=== PATIENT | female | born 1955 | race Hispanic/Latino ===

== ENCOUNTER 2024-03-23 06:57 | Observation (INO) | payer MEDICARE ==
[2024-03-21 17:20] LABS: BASOPHILS # (AUTO) 0.1 (0.0-0.1); EOSINOPHILS # (AUTO) 0.2 (0.0-0.4); EOSINOPHILS % 1.8 % (0.0-6.0); HEMATOCRIT 42.1 % (34.2-44.1); HEMOGLOBIN 14.1 g/dL (12.0-16.0); LYMPHOCYTES # (AUTO) 2.3 (1.0-3.2); LYMPHOCYTES % 27.7 % (18.0-39.1); MEAN CORPUSCULAR HEMOGLOBIN 30.8 pg (28-32); MEAN CORPUSCULAR HGB CONC 33.5 g/dL (31-35); MEAN CORPUSCULAR VOLUME 91.9 fL (81-99); MONOCYTES # (AUTO) 0.9 (0.2-0.8); MONOCYTES % 11.2 % (4.4-11.3); NEUTROPHILS # (AUTO) 4.8 (2.1-6.9); NEUTROPHILS % 58.1 % (38.7-80.0); PLATELET COUNT 219 x10e3/uL (140-360); RED BLOOD COUNT 4.58 x10e6/uL (3.6-5.1); RED CELL DISTRIBUTION WIDTH 12.6 % (11.7-14.4); WHITE BLOOD COUNT 8.22 x10e3/uL (4.8-10.8)
[2024-03-21 17:34] LABS: INR 0.94; PROTHROMBIN TIME 13.2 seconds (11.9-14.5)
[2024-03-21 17:42] LABS: ANION GAP 15.6 mmol/L (8-16); CALCIUM 9.5 mg/dL (8.4-10.2); CREATININE, SERUM 0.79 mg/dL (0.57-1.11); POTASSIUM 3.6 mmol/L (3.5-5.1)
[~2024-03-23 06:57] MED LIST: DORZOLAMIDE 2%10 ML OP; LATANOPROST2.5 ML OP; PREDNISOLO15 MG/5 ML OP
[2024-03-23] MEDS ORDERED: ROCURONIUM BROMIDE 1 ML IV ONE (07:10)
[2024-03-23] MEDS ORDERED: LIDOCAINE HCL 2% LOCAL INJ 5 ML SDV VIAL INJ ONE (07:10)
[2024-03-23] MEDS ORDERED: FENTANYL CITRATE/PF 100MCG/2 ML INJ ONE (07:10)
[2024-03-23] MEDS ORDERED: PROPOFOL IV EMULSION 10 MG/ML 20 ML VIAL ONE (07:10)
[2024-03-23] MEDS ORDERED: ACETAMINOPHEN 1000 MG/100 ML 100 ML IV ONE (07:10)
[2024-03-23] MEDS ORDERED: SEVOFLURANE INHAL SOLN 250 ML PEN BTL ONE (07:10)
[2024-03-23] MEDS: LACTATED RINGER'S 1,000 ML ONE (08:18)
[2024-03-23] MEDS ORDERED: DEXAMETHASONE SOD PHOS INJ 4 MG/ML SDV ONE (08:44)
[2024-03-23] MEDS ORDERED: FAMOTIDINE 20 MG/2 ML VIAL IV ONE (08:44)
[2024-03-23] MEDS ORDERED: KETAMINE 50MG/5ML SYR ONE (08:44)
[2024-03-23] MEDS ORDERED: ONDANSETRON HCL INJ 2MG/ML 2ML 2 MG/ML VIAL ONE (08:44)
[2024-03-23] MEDS ORDERED: LIDOCAINE HCL (LTA) 4 ML SOLN ONE (10:16)
[2024-03-23] MEDS ORDERED: SUGAMMADEX SODIUM 200 MG/2 ML VIAL IV ONE (10:57)
[2024-03-23] MEDS ORDERED: LACTATED RINGER'S 1,000 ML ONE (10:58)
[2024-03-23] MEDS ORDERED: HYDROCODON-ACE1 EA12 PO (11:57)
[2024-03-23] MEDS ORDERED: CEPACOL SORE THROAT LOZENGES PO PRN (12:00)
[2024-03-23] MEDS ORDERED: ACETAMINOPHEN 325 MG TAB PO PRN (12:00)
[2024-03-23] MEDS ORDERED: CARISOPRODOL 350 MG TAB PO PRN (12:00)
[2024-03-23] MEDS ORDERED: ZOLPIDEM TARTRATE 5 MG TAB PO PRN ×2 (12:00→21:00)
[2024-03-23] MEDS ORDERED: MAGNESIUM/ALUMINUM/SIMETHICONE 30 ML UDC PO PRN (12:00)
[2024-03-23] MEDS ORDERED: OXYCODONE/ACETAMINOPHEN 5-325 1 EACH TABLET PO PRN (12:00)
[2024-03-23] MEDS ORDERED: MORPHINE SULFATE 5 MG/ML VIAL IM PRN (12:00)
[2024-03-23] MEDS: FENTANYL CITRATE/PF 100MCG/2 ML INJ ONE (12:50)
[2024-03-23] MEDS: CEFAZOLIN SODIUM 2 GM ONE (15:00)
[2024-03-23] MEDS: METOCLOPRAMIDE HCL 10 MG/2ML VIAL ONE (15:02)
[2024-03-23 15:20] VITALS: BP 115/89; PULSE 89; RESP 19; TEMP 97.1; O2SAT 100
[2024-03-23] MEDS: LACTATED RINGER'S 1,000 ML IV SCH (15:59)
[2024-03-23] MEDS: HYDROMORPHONE 2MG/ML IV PRN (17:20)
[2024-03-23 18:23] VITALS: BP 144/91; PULSE 104; RESP 18; TEMP 98.2; O2SAT 100
[2024-03-23 20:00] VITALS: BP 153/82; PULSE 105; RESP 16; TEMP 98.2; O2SAT 100
[2024-03-23] MEDS: ONDANSETRON HCL INJ 2MG/ML 2ML 2 MG/ML VIAL IV PRN (20:50)
[2024-03-23] MEDS: LATANOPROST(OPTH) 2.5 ML BTL OP SCH (20:55)
[2024-03-23] MEDS ORDERED: LATANOPROST(OPTH) 2.5 ML BTL OP SCH (21:00)
[2024-03-23] MEDS: PROMETHAZINE HCL (IM) 25 MG/ML VIAL IM PRN (23:36)
[2024-03-24] VITALS: BP 126/79; PULSE 99; RESP 20; TEMP 98.6; O2SAT 100
[2024-03-24 05:02] VITALS: BP 129/74; PULSE 102; RESP 18; TEMP 99.1; O2SAT 93
[2024-03-24 07:47] VITALS: BP 116/67; PULSE 96; RESP 16; TEMP 98.9; O2SAT 94
[2024-03-24 07:48] VITALS: BP 116/67; PULSE 96; RESP 16; TEMP 98.9; O2SAT 94
[2024-03-24] MEDS: OXYCODONE/ACETAMINOPHEN 5-325 1 EACH TABLET PO PRN (10:28)
== END 2024-03-24 11:05 | disposition home or self-care (01) ==
LOC: OR 06:57 → EDBD 09:00 → PACU V 12:06 → MED/SURG 13:53
PROVIDERS: ADMIT Neurological Surgery; ATTEND Neurological Surgery
DX: M50.11 Cervical disc disorder with radiculopathy, high cervical region (principal); M50.121 Cervical disc disorder at C4-C5 level with radiculopathy; M48.02 Spinal stenosis, cervical region; M25.70 Osteophyte, unspecified joint; M06.9 Rheumatoid arthritis, unspecified; Z01.812 Encounter for preprocedural laboratory examination; Z01.818 Encounter for other preprocedural examination; Z01.810 Encounter for preprocedural cardiovascular examination; Z79.899 Other long term (current) drug therapy; Z79.52 Long term (current) use of systemic steroids
CPT/HCPCS: 20931; 22551; 22552; 22845; 36415; 71046; 72040; 80048; 85025; 85610; 85730; 86850; 86900; 88304; 93005; C1713 ×4; C1763; G0378 ×2; J0131; J0690 ×2; J1100; J1170 ×2; J2003; J2405 ×2; J2550; J2704; J2765; J3010; J7121; 76000; 88311